=== PATIENT | female | born 2000 | race Two or more races ===

== ENCOUNTER 2023-11-21 07:16 | Inpatient (IN) | payer MEDICAID ==
[~2023-11-21 07:16] MED LIST: Bupivacaine 0.25% 10 ML SDV ONE; Sodium Chloride 0.9% 10 ML SDV ONE
[2023-11-21] MEDS ORDERED: Sodium Chloride 0.9% 10 ML Syringe FLUSH PRN (08:04)
[2023-11-21] MEDS ORDERED: Ondansetron 4 MG/2 ML SDV IVPUSH PRN (08:04)
[2023-11-21] MEDS ORDERED: Lidocaine 1% 50 ML MDV INJECT PRN (08:04)
[2023-11-21] MEDS ORDERED: Nalbuphine 10 MG/ML Syringe IVPUSH PRN (08:04)
[2023-11-21] MEDS ORDERED: Acetaminophen 325 MG Tab PO PRN (08:04)
[2023-11-21] MEDS ORDERED: Calcium Carbonate 500 MG Tab.Chew PO PRN (08:04)
[2023-11-21] MEDS ORDERED: Oxytocin/0.9 % Sodium Chloride 30 UNIT/500 ML BAG IV SCH (08:15)
[2023-11-21] MEDS: Misoprostol 25 MCG (1/4 of 100 MCG) Tab VAG ONE (08:39)
[2023-11-21 08:44] LABS: BASOPHILS PERCENT AUTO 0.3 % (0.0-1.0); EOSINOPHILS ABSOLUTE AUTO 0.1 K/mm3 (0.0-0.4); EOSINOPHILS PERCENT AUTO 1.1 % (0.0-6.0); HEMATOCRIT 37.3 % (37.0-47.0); HEMOGLOBIN 12.5 gm/dl (12.0-16.0); IMMATURE GRAN ABSOLUTE AUTO 0.01 K/mm3 (0.00-0.05); IMMATURE GRAN PERCENT AUTO 0.1 % (0.0-0.4); LYMPHOCYTES PERCENT AUTO 27.6 % (24.0-44.0); MEAN CORPUSCULAR HEMOGLOBIN 29.6 pg (28.0-32.0); MEAN CORPUSCULAR HGB CONC 33.5 g/dl (32.0-36.0); MEAN CORPUSCULAR VOLUME 88.4 fl (83.0-99.0); MEAN PLATELET VOLUME 10.6 fl (9.4-12.3); MONOCYTES ABSOLUTE AUTO 0.6 K/mm3 (0.0-0.8); MONOCYTES PERCENT AUTO 7.7 % (0.0-8.0); NEUTROPHILS ABSOLUTE AUTO 4.5 K/mm3 (1.8-7.7); NEUTROPHILS PERCENT AUTO 63.2 % (41.0-71.0); PLATELET COUNT,PLT 204 K/mm3 (150-400); RED BLOOD CELL COUNT 4.22 M/mm3 (4.10-5.30); WHITE BLOOD CELL COUNT,WBC 7.17 K/mm3 (3.9-11.3)
[2023-11-21] MEDS: metFORMIN 500 MG Tab PO SCH (08:49)
[2023-11-21 09:12] LABS: CREATININE 0.7 mg/dL (0.55-1.02); EST CRCL DRUG DOSING (CG) 103.4 mL/min; URIC ACID 4.8 mg/dL (2.6-6.0)
[2023-11-21 11:24] LABS: CREATININE,URINE RAND 210.1 mg/dL (30.0-125.0); PROTEIN CREATININE RATIO,URINE 151.8 mg/g (0-149); PROTEIN,URINE RANDOM 31.9 mg/dL (0.0-11.8)
[2023-11-21] MEDS: Sodium Chloride 0.9% 10 ML Syringe FLUSH SCH (11:40)
[2023-11-21] MEDS ORDERED: Misoprostol 25 MCG (1/4 of 100 MCG) Tab VAG PRN (13:00)
[2023-11-21] MEDS: Lactated Ringers 1,000 ML IV SCH (14:08)
[2023-11-21] MEDS ORDERED: diphenhydrAMINE 50 MG/ML SDV IVPUSH PRN (14:25)
[2023-11-21] MEDS: fentaNYL 100 MCG/2 ML SDV EPIDUR PRN (14:51)
[2023-11-21] MEDS: Bupivacaine/fentaNYL/NS 100 ML Bag EPIDUR PRN (14:52)
[2023-11-21] MEDS: Oxytocin/0.9 % Sodium Chloride 30 UNIT/500 ML BAG IV SCH (18:31)
[2023-11-21] MEDS ORDERED: Lidocaine 2% with EPINEPHrine 1:200,000 20 ML SDV ONE (23:54)
[2023-11-21] MEDS ORDERED: Ondansetron 4 MG/2 ML SDV ONE (23:54)
[2023-11-21] MEDS ORDERED: ePHEDrine 50 MG/ML SDV ONE (23:54)
[2023-11-21] MEDS ORDERED: ceFAZolin 2 GM Vial ONE (23:54)
[2023-11-21] MEDS ORDERED: Morphine PF 10 MG/10 ML SDV ONE ×2 (23:57)
[2023-11-21] MEDS ORDERED: Sodium Bicarbonate 8.4% 50 MEQ/50 ML SDV ONE (23:58)
[2023-11-21] MEDS ORDERED: ceFAZolin 2 GM in Sodium Chloride 0.9% 50 ML IV ONE (23:58)
[2023-11-22] MEDS: Citric Acid/Sodium Citrate Solution 30 ML Cup PO ONE (00:06)
[2023-11-22] MEDS: Metoclopramide 10 MG/2 ML SDV IVPUSH ONE (00:07)
[2023-11-22] MEDS: Azithromycin 500 MG in Sodium Chloride 0.9% 250 ML IV ONE (00:07)
[2023-11-22] MEDS: ePHEDrine 50 MG/ML SDV IVPUSH PRN (00:28)
[2023-11-22] MEDS ORDERED: Ketorolac 30 MG/ML SDV ONE (01:18)
[2023-11-22] MEDS ORDERED: HYDROmorphone 0.5 MG/0.5 ML Syringe IVPUSH PRN (01:38)
[2023-11-22] MEDS ORDERED: Meperidine 50 MG/ML Vial IVPUSH PRN (01:38)
[2023-11-22] MEDS ORDERED: Ondansetron 4 MG/2 ML SDV IVPUSH PRN ×2 (01:38)
[2023-11-22] MEDS ORDERED: diphenhydrAMINE 50 MG/ML SDV IVPUSH PRN ×2 (01:38→01:44)
[2023-11-22] MEDS ORDERED: fentaNYL 100 MCG/2 ML SDV IVPUSH PRN ×2 (01:38)
[2023-11-22] MEDS ORDERED: oxyCODONE 5 MG Tab PO PRN (01:44)
[2023-11-22] MEDS ORDERED: Naloxone 0.4 MG/ML SDV IVPUSH PRN (01:44)
[2023-11-22] MEDS ORDERED: ePHEDrine 50 MG/ML SDV IVPUSH PRN (01:44)
[2023-11-22] MEDS: Lactated Ringers 1,000 ML IV SCH (03:03)
[2023-11-22] MEDS: Ibuprofen 600 MG Tab PO SCH (07:34)
[2023-11-22] MEDS: Acetaminophen 325 MG Tab PO SCH ×2 (07:35→10:24)
[2023-11-22 08:25] LABS: BASOPHILS PERCENT AUTO 0.1 % (0.0-1.0); EOSINOPHILS PERCENT AUTO 0.1 % (0.0-6.0); HEMOGLOBIN 11.4 gm/dl (12.0-16.0); IMMATURE GRAN PERCENT AUTO 0.5 % (0.0-0.4); LYMPHOCYTES ABSOLUTE AUTO 1.4 K/mm3 (1.0-4.8); LYMPHOCYTES PERCENT AUTO 7.2 % (24.0-44.0); MEAN CORPUSCULAR HEMOGLOBIN 29.2 pg (28.0-32.0); MEAN CORPUSCULAR HGB CONC 32.6 g/dl (32.0-36.0); MEAN CORPUSCULAR VOLUME 89.7 fl (83.0-99.0); MEAN PLATELET VOLUME 10.2 fl (9.4-12.3); MONOCYTES ABSOLUTE AUTO 0.8 K/mm3 (0.0-0.8); MONOCYTES PERCENT AUTO 4.2 % (0.0-8.0); NEUTROPHILS ABSOLUTE AUTO 17.3 K/mm3 (1.8-7.7); NEUTROPHILS PERCENT AUTO 87.9 % (41.0-71.0); PLATELET COUNT,PLT 183 K/mm3 (150-400); WHITE BLOOD CELL COUNT,WBC 19.65 K/mm3 (3.9-11.3)
[2023-11-22] MEDS: Sennosides 8.6 MG Tab PO SCH (21:03)
[2023-11-23 06:32] LABS: BASOPHILS PERCENT AUTO 0.2 % (0.0-1.0); EOSINOPHILS ABSOLUTE AUTO 0.2 K/mm3 (0.0-0.4); HEMOGLOBIN 10.4 gm/dl (12.0-16.0); IMMATURE GRAN ABSOLUTE AUTO 0.08 K/mm3 (0.00-0.05); IMMATURE GRAN PERCENT AUTO 0.5 % (0.0-0.4); LYMPHOCYTES ABSOLUTE AUTO 2.3 K/mm3 (1.0-4.8); LYMPHOCYTES PERCENT AUTO 14.1 % (24.0-44.0); MEAN CORPUSCULAR HEMOGLOBIN 29.2 pg (28.0-32.0); MEAN CORPUSCULAR HGB CONC 32.5 g/dl (32.0-36.0); MEAN CORPUSCULAR VOLUME 89.9 fl (83.0-99.0); MEAN PLATELET VOLUME 10.4 fl (9.4-12.3); NEUTROPHILS PERCENT AUTO 78.2 % (41.0-71.0); PLATELET COUNT,PLT 168 K/mm3 (150-400); RED BLOOD CELL COUNT 3.56 M/mm3 (4.10-5.30); WHITE BLOOD CELL COUNT,WBC 16.56 K/mm3 (3.9-11.3)
[2023-11-23] MEDS: Docusate Sodium 100 MG Cap PO PRN (08:13)
== END 2023-11-24 12:45 | disposition home or self-care (01) | DRG 788 ==
LOC: JD.OBCHECK 07:16 → JD.OB 08:05 → OBSVTOIN 23:59 → JD.OB 11-22 00:54
PROVIDERS: ADMIT Obstetrics & Gynecology; ATTEND Obstetrics & Gynecology
PROC: 10907ZC Drainage of Amniotic Fluid, Therapeutic from Products of Conception, Via Natural or Artificial Opening (ICD-10-PCS; 2023-11-22)
PROC: 3E0R3BZ Introduction of Anesthetic Agent into Spinal Canal, Percutaneous Approach (ICD-10-PCS; 2023-11-22)
PROC: 00HU33Z Insertion of Infusion Device into Spinal Canal, Percutaneous Approach (ICD-10-PCS; 2023-11-22)
PROC: 10D00Z1 Extraction of Products of Conception, Low, Open Approach (ICD-10-PCS; principal; 2023-11-22 01:00)
DX: O24.425 Gestational diabetes mellitus in childbirth, controlled by oral hypoglycemic drugs (principal); O75.81 Maternal exhaustion complicating labor and delivery; O99.02 Anemia complicating childbirth; O62.1 Secondary uterine inertia; O77.0 Labor and delivery complicated by meconium in amniotic fluid; O99.214 Obesity complicating childbirth; Z37.0 Single live birth; Z3A.39 39 weeks gestation of pregnancy
CPT/HCPCS: 01961; 36415; 51702; 59025; 82565; 82570; 82947; 83615; 84156; 84450; 84460; 84520; 84550; 85025; 86592; 86850; 86900; 86901; 94762; 99140; A9270-GY; J0456; J0665; J0690; J1885; J2274; J2405; J2765; J3010; J3490; J7050; J7120

== ENCOUNTER 2023-12-01 16:32 | Emergency (ER) | payer MEDICAID, OTHER | END 2023-12-01 18:05 | disposition home or self-care (01) | LOC: JD.ED 16:32 | DX: T85.848A Pain due to other internal prosthetic devices, implants and grafts, initial encounter (principal); K01.1 Impacted teeth; Z79.899 Other long term (current) drug therapy | CPT/HCPCS: 99282; 99283 ==

== ENCOUNTER 2023-12-26 21:21 | Emergency (ER) | payer MEDICAID ==
[2023-12-26 22:21] LABS: BASOPHILS PERCENT AUTO 0.3 % (0.0-1.0); EOSINOPHILS ABSOLUTE AUTO 0.3 K/mm3 (0.0-0.4); HEMATOCRIT 45.8 % (37.0-47.0); HEMOGLOBIN 14.9 gm/dl (12.0-16.0); IMMATURE GRAN ABSOLUTE AUTO 0.02 K/mm3 (0.00-0.05); IMMATURE GRAN PERCENT AUTO 0.2 % (0.0-0.4); LYMPHOCYTES ABSOLUTE AUTO 3.3 K/mm3 (1.0-4.8); LYMPHOCYTES PERCENT AUTO 34.5 % (24.0-44.0); MEAN CORPUSCULAR HEMOGLOBIN 28.7 pg (28.0-32.0); MEAN CORPUSCULAR HGB CONC 32.5 g/dl (32.0-36.0); MEAN CORPUSCULAR VOLUME 88.2 fl (83.0-99.0); MEAN PLATELET VOLUME 10.2 fl (9.4-12.3); MONOCYTES ABSOLUTE AUTO 0.5 K/mm3 (0.0-0.8); MONOCYTES PERCENT AUTO 5.2 % (0.0-8.0); NEUTROPHILS ABSOLUTE AUTO 5.4 K/mm3 (1.8-7.7); NEUTROPHILS PERCENT AUTO 56.8 % (41.0-71.0); PLATELET COUNT,PLT 253 K/mm3 (150-400); RED BLOOD CELL COUNT 5.19 M/mm3 (4.10-5.30); WHITE BLOOD CELL COUNT,WBC 9.43 K/mm3 (3.9-11.3)
[2023-12-26 22:24] LABS: APPEARANCE,URINE CLEAR (Clear); BILIRUBIN,URINE 1+ (Negative); COLOR,URINE RED (Yellow); GLUCOSE,URINE NEGATIVE (Negative); KETONES,URINE TRACE (Negative); LEUKOCYTE ESTERASE,URINE NEGATIVE (Negative); NITRITE,URINE NEGATIVE (Negative); OCCULT BLOOD,URINE 3+ (Negative); PH,URINE 6.5 (5.0-8.0); PROTEIN,URINE 2+ (Negative)
[2023-12-26 22:42] LABS: BACTERIA,URINE FEW /hpf (FEW); MUCUS,URINE FEW /hpf (FEW); RBC,URINE TOO NUMEROUS TO CNT /hpf (0-5); SQUAMOUS EPITHELIAL CELLS,UR 0-5 /hpf (0-5); WBC,URINE 0-5 /hpf (0-5)
[2023-12-26 22:51] LABS: A/G RATIO 0.9 (1-2); ALBUMIN 3.8 g/dl (3.4-5.0); ANION GAP 12.6 (5-15); BILIRUBIN TOTAL 0.6 mg/dL (0.2-1.0); CALCIUM 9.4 mg/dL (8.5-10.1); CREATININE 0.9 mg/dL (0.55-1.02); EST CRCL DRUG DOSING (CG) 69.83 mL/min; POTASSIUM,K 3.6 mEq/L (3.5-5.1); PROTEIN TOTAL,TP 7.9 g/dl (6.4-8.2)
== END 2023-12-26 23:03 | disposition home or self-care (01) ==
LOC: JD.ED 21:21
DX: O72.1 Other immediate postpartum hemorrhage (principal); N93.9 Abnormal uterine and vaginal bleeding, unspecified; Z79.899 Other long term (current) drug therapy; Z3A.01 Less than 8 weeks gestation of pregnancy
CPT/HCPCS: 36415; 76856; 76856-26; 80053; 81001; 81025; 85025; 99284

== ENCOUNTER 2024-08-13 22:35 | Emergency (ER) | payer MEDICAID ==
[2024-08-13] MEDS: Amoxicillin 500 MG Cap PO ONE (22:58)
[2024-08-13] MEDS: Acetaminophen/HYDROcodone 325-5 MG Tab PO ONE (22:58)
== END 2024-08-13 23:03 | disposition home or self-care (01) ==
LOC: JD.ED 22:35
DX: K08.89 Other specified disorders of teeth and supporting structures (principal); Z79.899 Other long term (current) drug therapy
CPT/HCPCS: 99282; A9270